=== PATIENT | male | born 1970 | race Caucasian/White ===

== ENCOUNTER 2020-08-20 21:03 | Observation (INO) ==
[2020-08-21] MEDS ORDERED: *HR* Promethazine 25 MG/ML VIAL IM PRN (01:13)
[2020-08-21] MEDS ORDERED: Naloxone 0.4 MG/ML INJ IVP PRN (01:13)
[2020-08-21] MEDS ORDERED: Melatonin 3 MG TABLET PO PRN (01:13)
[2020-08-21] MEDS ORDERED: Ondansetron 4 MG/2 ML VIAL IVP PRN (01:13)
[2020-08-21 06:40] LABS: Basophils % 0.6 %; Eosinophils # 0.2 K/mcL (0.0-0.6); Eosinophils % 2.9 %; Hemoglobin 14.2 g/dL (12.9-16.9); Immature Granulocytes % 0.3 % (0-4); Lymphocytes # 1.8 K/mcL (0.6-4.6); Lymphocytes % 25.1 %; Mean Corpuscular HGB Conc 32.3 g/dL (31.6-35.5); Mean Corpuscular Hemoglobin 27.3 pg (28.0-33.3); Mean Corpuscular Volume 84.6 fL (83.0-100.0); Mean Platelet Volume 9.4 fL (9.4-12.4); Monocytes # 0.6 K/mcL (0.0-1.3); Monocytes % 8.7 %; Neutrophils # 4.5 K/mcL (1.6-8.9); Platelet Count 180 K/mcL (140-400); Red Cell Distribution Width 13.9 % (11.5-14.5); Segmented Neutrophils % 62.4 %; White Blood Count 7.1 K/mcL (4.3-11.1)
[2020-08-21 06:52] LABS: INR 1.2; Prothrombin Time 13.9 Seconds (9.4-12.1)
[2020-08-21 07:05] LABS: BUN/Creatinine Ratio 13 (6-26); Blood Urea Nitrogen 12 mg/dL (6-20); Calcium 8.4 mg/dL (8.6-10.3); Carbon Dioxide 27 mEq/L (23-29); Chloride 105 mEq/L (98-107); Glucose 109 mg/dL (70-105); Osmolality,Calculated 286 (280-300); Potassium 3.7 mEq/L (3.5-5.1); Sodium 138 mEq/L (136-145); eGFR For African Americans > 60 (> 60); eGFR For Non-African Americans > 60 (> 60)
[2020-08-21] MEDS: Piperacillin/Tazobactam 3.375 GM in 0.9 % Sodium Chloride Mini Bag 100 ML IVPB SCH ×2 (08:48→17:44)
[2020-08-21] MEDS: Calcium Gluconate 1gm/50mL 1 GM/50 ML BAG IVPB SCH ×2 (09:20→10:40)
[2020-08-21 11:36] LABS: C-Reactive Protein 40 mg/L (Less than 10)
[2020-08-21] MEDS: lisinopriL 20 MG TABLET PO SCH (11:46)
[2020-08-21] MEDS: Vancomycin 2,000 MG/520 ML IV.SOLN IVPB SCH ×2 (11:47→22:09)
[2020-08-21] MEDS ORDERED: Acetaminophen 325 MG TABLET PO PRN (12:01)
[2020-08-21] MEDS ORDERED: *HR* Dextrose 50 % in Water (Vial) 50 ML VIAL IVP PRN (15:41)
[2020-08-21] MEDS ORDERED: D5% in Water 1,000 ML IVC PRN (15:41)
[2020-08-21] MEDS ORDERED: Dextrose Gel 15 GM/37.5 ML TUBE PO PRN ×2 (15:41)
[2020-08-21] MEDS ORDERED: Lidocaine/EPI 1:200k 1% PF 10 ML VIAL ONE (20:44)
[2020-08-21] MEDS ORDERED: *HR* FentaNYL (PF) 100 MCG/2 ML VIAL ONE (20:49)
[2020-08-21] MEDS ORDERED: *HR* Propofol 200 MG/20 ML VIAL IVP ONE ×2 (20:49→21:14)
[2020-08-21] MEDS ORDERED: Lidocaine -MPF 2% 2 ML VIAL ONE (20:50)
[2020-08-21] MEDS: Lactobacillus 1 EACH CAP.SPRINK PO SCH (22:09)
[2020-08-22] MEDS ORDERED: Piperacillin/Tazobactam 3.375 GM in 0.9 % Sodium Chloride Mini Bag 100 ML IVPB SCH (04:00)
[2020-08-22 05:18] LABS: Hematocrit 43.4 % (37.5-50.1); Hemoglobin 13.9 g/dL (12.9-16.9); Mean Corpuscular Hemoglobin 27.3 pg (28.0-33.3); Mean Corpuscular Volume 85.3 fL (83.0-100.0); Mean Platelet Volume 9.5 fL (9.4-12.4); Platelet Count 197 K/mcL (140-400); Red Blood Count 5.09 M/mcL (4.19-5.50); Red Cell Distribution Width 13.8 % (11.5-14.5); White Blood Count 9.7 K/mcL (4.3-11.1)
[2020-08-22 05:47] LABS: BUN/Creatinine Ratio 14 (6-26); Blood Urea Nitrogen 13 mg/dL (6-20); Calcium 8.6 mg/dL (8.6-10.3); Carbon Dioxide 24 mEq/L (23-29); Chloride 106 mEq/L (98-107); Glucose 139 mg/dL (70-105); Magnesium 2.1 mg/dL (1.6-2.6); Osmolality,Calculated 286 (280-300); Potassium 3.8 mEq/L (3.5-5.1); Sodium 137 mEq/L (136-145); eGFR For African Americans > 60 (> 60); eGFR For Non-African Americans > 60 (> 60)
[2020-08-22 06:54] VITALS: BP 109/68; PULSE 66; TEMP 98.2; O2SAT 95
[2020-08-22] MEDS: lisinopriL 20 MG TABLET PO SCH (08:29)
[2020-08-22] MEDS: Lactobacillus 1 EACH CAP.SPRINK PO SCH (08:29)
[2020-08-22] MEDS: Vancomycin 2,000 MG/520 ML IV.SOLN IVPB SCH (08:30)
[2020-08-22] MEDS ORDERED: Multivit/Ca/Min/Fe/FA 1 TAB TABLET PO SCH ×2 (09:00)
[2020-08-22] MEDS ORDERED: Td (TENIVAC) Vaccine 0.5 ML VIAL IM ONE (09:27)
== END 2020-08-22 12:20 | disposition home or self-care (01) ==
LOC: 3NENU → SUATTDRO 23:56
PROVIDERS: ADMIT Internal Medicine; ATTEND Internal Medicine